=== PATIENT | female | born 1980 | race Caucasian/White ===

== ENCOUNTER 2024-03-01 17:52 | Emergency (ER) | payer BC, SELFPAY ==
[2024-03-01] VITALS (17 sets, daily range): BP systolic 148–162; BP diastolic 85–94; PULSE 95–115; TEMP 36.8; O2SAT 94–100; BMI 50.5
--- NOTE | 2024-03-01 18:13 | ECG_ITS ---
[facility] Test Date: 2024-03-01 Pat Name: Kym Reich Department: Room: - Gender: Female [employer]: : 1980 Requested By: [id number] Order Number: [id number] Reading MD: MOE LIN Measurements Intervals [place] Rate: 105 P: 67 LA: 156 QRS: 101 QRSD: 84 T: 33 QT: 332 QTc: 393 Interpretive Statements 1120 Sinus tachycardia 7100 Abnormal right axis deviation 9140 abnormal rhythm ECG Electronically Signed On 03-02-2024 7:01:59 EDT by MOE LIN
--- NOTE | 2024-03-01 18:15 | ED_ITS ---
HPI HPI - General Adult General Chief complaint: Back Pain/Injury Stated complaint: sob, poss kidney infection Time Seen by Provider: 03/01/24 18:08 Source: patient Mode of arrival: walk-in Limitations: no limitations History of Present Illness HPI narrative: Patient is a 43-year-old female with a history of insulin-dependent diabetes/insulin pump who presents to the ER for multiple complaints. She states her most pressing complaint is feeling more short of breath in the last several days. She was seen last week for upper respiratory symptoms and had negative swabs for COVID and flu. She states her upper respiratory symptoms have improved but she has had a tickle in her throat and shortness of breath. She has no specific chest pain but states she has had chest pressure. She r eports right flank pain for the last several days as well, she has been treated for UTI multiple times over the last month. She was initially on Keflex but states she continues to have urinary symptoms and had a urine culture that was positive for E. coli. Her primary care provider called in Augmentin for her today which she has not started yet. She has had no objective fevers or vomiting. She has had decreased appetite. She continues to have dysuria and bladder pressure with urination. Related Data Home Medications ?Medication ?Instructions ?Recorded ?Confirmed amlodipine 5 mg tablet 5 mg PO DAILY 03/01/24 03/01/24 bupropion HCl 150 mg 24 hr tablet, 150 mg PO DAILY 03/01/24 03/01/24 extended release cholecalciferol (vitamin D3) 25 25 mcg PO DAILY 03/01/24 03/01/24 mcg (1,000 unit) tablet duloxetine 60 mg capsule,delayed 60 mg PO DAILY 03/01/24 03/01/24 release ezetimibe 10 mg tablet 10 mg PO DAILY 03/01/24 03/01/24 irbesartan 150 mg tablet 150 mg PO DAILY 03/01/24 03/01/24 levonorgestrel-ethinyl estradiol 1 tab PO DAILY 03/01/24 03/01/24 90 mcg-20 mcg (28) tablet (Kavitha (28)) levothyroxine 50 mcg tablet 50 mcg PO DAILY 03/01/24 03/01/24 rosuvastatin 5 mg tablet 5 mg PO .weekly 03/01/24 03/01/24 Previous Rx's ?Medication ?Instructions ?Recorded levofloxacin 750 mg tablet 750 mg PO DAILY 5 days #5 tabs 03/01/24 ondansetron 4 mg disintegrating 4 mg PO Q6H PRN nausea and 03/01/24 tablet vomiting #12 tabs phenazopyridine 200 mg tablet 200 mg PO Q8H 2 days #6 tabs 03/01/24 (Pyridium) prednisone 20 mg tablet See Rx Instructions .Route 03/01/24 .COMPLEX #12 tabs Allergies Allergy/AdvReac Type Severity Reaction Status Date / Time morphine Allergy Severe Verified 03/01/24 18:01 topiramate [From Topamax] Allergy Severe Verified 03/01/24 18:01 amoxicillin AdvReac Severe Verified 03/01/24 18:01 Opioid HPI Opioid Management Most Recent Opioid Data: Last Pain Scale 1 03/01/24 18:44 Review of Systems ROS Constitutional Denies: fever or chills Ears, nose, mouth, and throat Reports: nasal congestion; Denies: throat pain Cardiovascular Denies: chest pain Respiratory Reports: shortness of breath and cough Gastrointestinal Denies: abdominal pain, nausea, vomiting or diarrhea Genitourinary Reports: painful urination and urinary frequency Musculoskeletal Reports: back pain Integumentary/Breast Denies: rash Neurological Denies: headache Hematologic/Lymphatic Denies: easy bruising or easy bleeding Exam Narrative Exam Narrative: Gen.: Awake, alert, in no distress Head: Normocephalic, atraumatic ENT: Moist mucous membranes Respiratory: No respiratory distress, lungs clear bilaterally Cardio: Regular rate and rhythm Gastrointestinal: Abdomen is soft, obese, nondistended and nontender to palpation; Insulin pump to the anterior abdomen Back: Minimal tenderness of the right flank with no specific CVA tenderness, spinal tenderness Extremities: Moves extremities equally, no injuries noted Psych: Normal mood and affect Neuro: No focal neuro deficit Skin: Warm, dry, intact Constitutional Vital Signs, click to edit/add: Last Vital Signs Temp 98.3 F 03/01/24 18:02 Pulse 111 H 03/01/24 18:02 Resp 18 03/01/24 18:02 BP 162/91 H 03/01/24 18:02 Pulse Ox 100 03/01/24 18:45 O2 Del Method Room Air 03/01/24 18:45 Course Vital Signs Vital signs: Vital Signs Temperature 98.3 F 03/01/24 18:02 Pulse Rate 111 H 03/01/24 18:02 Respiratory Rate 18 03/01/24 18:02 Blood Pressure 162/91 H 03/01/24 18:02 Pulse Oximetry 98 03/01/24 18:02 Oxygen Delivery Method Room Air 03/01/24 18:02 Temperature 98.3 F 03/01/24 18:02 Pulse Rate 111 H 03/01/24 18:02 Respiratory Rate 18 03/01/24 18:02 Blood Pressure 162/91 H 03/01/24 18:02 Pulse Oximetry 100 03/01/24 18:45 Oxygen Delivery Method Room Air 03/01/24 18:45 Medical Decision Making MDM Narrative Medical decision making narrative: IV established with IV fluids given, patient declined pain medication in the ER. Urine specimen shows no evidence of urinary tract infection. Patient was called in Augmentin by her primary care provider but she is allergic to am oxicillin. Her lab studies showed no evidence of acute process. She did have an elevated D-dimer and was sent for CT angio of the chest as well as a CT abdomen and pelvis without contrast. CT of the abdomen shows moderate stool consistent with constipation, Patient was encouraged to use MiraLAX [id number]. Her CT angio of the chest shows a mild groundglass opacity in the left upper lobe consistent with pneumonia. She will be given Levaquin, prednisone at her request and Pyridium for urinary symptoms. She is referred to urology if she continues to have urinary symptoms. Follow-up with PCP and return to the ER if symptoms change or worsen. Medical Records Medical records reviewed: Yes I reviewed the patient's medical records Lab Data Lab results reviewed: Yes I reviewed the patient's lab results Labs: Lab Results 03/01/24 03/01/24 03/01/24 Range/Units 18:11 18:19 18:28 WBC 11.7 H (4.0-11.0) 10^3/uL RBC 4.38 (4.20-5.40) 10^6/uL Hgb 12.0 (12.0-16.0) g/dL Hct 37.8 (36.0-48.0) % MCV 86.3 (81.0-99.0) fL MCH 27.4 (26.7-34.0) pg MCHC 31.7 (29.9-35.2) g/dL RDW 14.2 (11.0-15.0) % Plt Count 518 H (150-450) 10^3/uL MPV 10.2 (9.5-13.5) fL Neut % (Auto) 62.7 (43.0-75.0) % Lymph % (Auto) 27.9 (20.5-60.0) % [place] % (Auto) 6.2 (1.7-12.0) % Eos % (Auto) 1.9 (0.9-7.0) % Baso % (Auto) 0.6 (0.2-2.0) % Neut # (Auto) 7.3 H (1.4-6.5) 10^3/uL Lymph # (Auto) 3.3 (1.2-3.8) 10^3/uL [place] # (Auto) 0.7 (0.3-0.8) 10^3/uL Eos # (Auto) 0.2 (0.0-0.7) 10^3/uL Baso # (Auto) 0.1 (0.0-0.1) 10^3/uL Abs Immat Gran (auto) 0.08 H (0.00-0.03) 10^3/uL Imm/Tot Granulo (auto) 0.7 H (0.0-0.5) % D-Dimer 1.18 H* (<=0.59) mg/L FEU VBG pH 7.441 H (7.330-7.430) VBG pCO2 39.1 L (40.0-52.0) mmHg Sodium 137 (136-145) mmol/L Potassium 3.6 (3.5-5.1) mmol/L Chloride 100 (98-107) mmol/L Carbon Dioxide 27.1 (21.0-32.0) mmol/L Anion Gap 13.5 BUN 11.0 (7.0-18.0) mg/dL Creatinine 0.91 (0.55-1.02) mg/dL Est GFR ( Amer) >60 (>=60) Est GFR (Non-Af Amer) >60 (>=60) BUN/Creatinine Ratio 12.1 Glucose 150 H (74-106) mg/dL Lactate 1.8 (0.4-2.0) mmol/L Calcium 9.1 (8.5-10.1) mg/dL Magnesium 2.0 (1.8-2.4) mg/dL Total Bilirubin 0.5 (0.2-1.0) mg/dL AST 16 (15-37) U/L ALT 35 (14-59) U/L Alkaline Phosphatase 149 H (46-116) U/L Troponin I High Sens <4.0 L (4.0-51.3) pg/mL NT-Pro-B Natriuret Pep 155.0 (<=450.0) pg/mL Total Protein 7.4 (6.4-8.2) g/dL Albumin 3.0 L (3.4-5.0) g/dL Globulin 4.4 g/dL Albumin/Globulin Ratio 0.7 Procalcitonin <0.05 (0.00-0.50) ng/mL Serum HCG, Qual Negative (NEGATIVE) Urine Color Yellow (YELLOW) Urine Clarity Clear (CLEAR) Urine pH 6.0 (5.0-9.0) Ur Specific [place] >=1.030 A (1.005-1.025) Urine Protein Negative (NEG/TRACE) mg/dL Urine Glucose (UA) Negative (NEGATIVE) mg/dL Urine Ketones Negative (NEGATIVE) mg/dL Urine Occult Blood Negative (NEGATIVE) Urine Nitrite Negative (NEGATIVE) Urine Bilirubin Negative (NEGATIVE) Urine Urobilinogen 1.0 (0.2-1.0) EU/dL Ur Leukocyte Esterase Negative (NEGATIVE) Imaging Data CT scan - chest: Attestation: I have reviewed the pertinent imaging results. Radiologist's impression: ITS Impressions Abdomen/Pelvis CT 03/01/24 19:05 IMPRESSION: 1. No significant acute abnormality identified in the abdomen or pelvis, within the limits of unenhanced CT, as described above. No obstructing urinary calculi or hydronephrosis. Normal appendix. 2. Mild diffuse colonic stool burden may reflect constipation. Electronically authenticated by: BLANCHE JEFFREY Date: 03/01/2024 20:23 Chest CTA 03/01/24 19:05 Impression: 1. No pulmonary embolism. 2. Focal groundglass infiltrate in the left upper lobe is suspicious for pneumonia. Recommend follow-up imaging to ensure resolution. Electronically authenticated by: ARNOLDO MORAN Date: 03/01/2024 20:57 ECG Data Attestation: I personally reviewed and interpreted this ECG as follows: (Sinus tachycardia at a rate of 105, no acute ST elevation or ectopy. EKG reviewed by attending physician) Discharge Plan Discharge Stand Alone Forms: Portal Instructions Chief Complaint: Back Pain/Injury Clinical Impression: Shortness of breath, Flank pain, Left upper lobe pneumonia Patient Disposition: Home, Self-Care Time of Disposition Decision: 21:08 Condition: Good Prescriptions / Home Meds: New levofloxacin 750 mg tablet 750 mg PO DAILY 5 Days Qty: 5 0RF phenazopyridine [Pyridium] 200 mg tablet 200 mg PO Q8H 2 Days Qty: 6 0RF prednisone 20 mg tablet See Rx Instructions .ROUTE .COMPLEX Qty: 12 0RF Rx Instructions: 3 tabs daily for 2 days, then 2 tabs daily for 2 days, then 1 tab daily for 2 days ondansetron 4 mg tablet,disintegrating 4 mg PO Q6H PRN (Reason: nausea and vomiting) Qty: 12 0RF No Action amlodipine 5 mg tablet 5 mg PO DAILY bupropion HCl 150 mg tablet extended release 24 hr 150 mg PO DAILY cholecalciferol (vitamin D3) 25 mcg (1,000 unit) tablet 25 mcg PO DAILY duloxetine 60 mg capsule,delayed release(DR/EC) 60 mg PO DAILY ezetimibe 10 mg tablet 10 mg PO DAILY irbesartan 150 mg tablet 150 mg PO DAILY levonorgestrel-ethinyl estrad [Kavitha (28)] 90-20 mcg (28) tablet 1 tab PO DAILY levothyroxine 50 mcg tablet 50 mcg PO DAILY rosuvastatin 5 mg tablet 5 mg PO .weekly Print Language: Ukrainian Instructions: Flank Pain (ED), Pneumonia (ED), Shortness of Breath (ED) Referrals: Binh Aguilar MD [Physician] - 1 week CIARA URIBE [Primary Care Provider] - 1 week
[2024-03-01] MEDS: 0.9 % SODIUM CHLORIDE 1,000 ML 999 ML IV (18:32)
[2024-03-01 18:38] LABS: PCO2 VBG 39.1 mmHg (40.0-52.0); pH VBG 7.441 (7.330-7.430)
[2024-03-01 18:43] LABS: Basophils Absolute Auto 0.1 10^3/uL (0.0-0.1); Basophils Percent Auto 0.6 % (0.2-2.0); Eosinophils Absolute Auto 0.2 10^3/uL (0.0-0.7); Eosinophils Percent Auto 1.9 % (0.9-7.0); Hematocrit 37.8 % (36.0-48.0); Immature Granulocytes Abs Auto 0.08 10^3/uL (0.00-0.03); Immature Granulocytes Pct Auto 0.7 % (0.0-0.5); Lymphocytes Absolute Auto 3.3 10^3/uL (1.2-3.8); Lymphocytes Percent Auto 27.9 % (20.5-60.0); Mean Corpuscular HGB Conc 31.7 g/dL (29.9-35.2); Mean Corpuscular Hemoglobin 27.4 pg (26.7-34.0); Mean Corpuscular Volume 86.3 fL (81.0-99.0); Mean Platelet Volume 10.2 fL (9.5-13.5); Monocytes Absolute Auto 0.7 10^3/uL (0.3-0.8); Monocytes Percent Auto 6.2 % (1.7-12.0); Neutrophils Absolute Auto 7.3 10^3/uL (1.4-6.5); Neutrophils Percent Auto 62.7 % (43.0-75.0); Platelet Count 518 10^3/uL (150-450); Red Blood Count 4.38 10^6/uL (4.20-5.40); Red Cell Distribution Width 14.2 % (11.0-15.0); White Blood Count 11.7 10^3/uL (4.0-11.0)
[2024-03-01 18:52] LABS: Bilirubin Urine NEGATIVE (NEGATIVE); Blood Urine NEGATIVE (NEGATIVE); Clarity Urine CLEAR (CLEAR); Color Urine YELLOW (YELLOW); Glucose Urine UA NEGATIVE (NEGATIVE); Ketones Urine NEGATIVE (NEGATIVE); Leukocyte Esterase Urine NEGATIVE (NEGATIVE); Nitrite Urine NEGATIVE (NEGATIVE); Protein Urine NEGATIVE (NEG/TRACE); Specific Gravity Urine >=1.030 (1.005-1.025)
[2024-03-01 18:53] LABS: HCG Qualitative NEGATIVE (NEGATIVE)
[2024-03-01 18:54] LABS: Urine Microscopic Indicated NO
[2024-03-01 18:59] LABS: Lactate/Lactic Acid 1.8 mmol/L (0.4-2.0)
--- NOTE | 2024-03-01 19:05 | CT_ITS ---
The [address] [address] Patient Name: CHRISTIANO GARCIA MRN: [id number] date: 1980 Sex: F Assigned Patient Location: ER Current Patient Location: ER Accession/Order Number: [id number] Exam Date: 03/01/2024 19:39 Report Date: 03/01/2024 20:57 At the request of: JAMI PERDOMO Procedure: CT angio chest CT angio chest 03/01/2024 6:39 PM CDT: History: pe Chest pain. Possible pulmonary embolism. Comparison: None. Technique: IV Contrast enhanced CTA imaging of the chest. Sagittal and coronal MIP reformatted images are provided. This CT exam was performed using one or more of the following dose reduction techniques: Automated exposure control, adjustment of the mA and/or KV according to patient size, or use of iterative reconstruction technique. Findings: The central airway is midline and patent. The lungs are well expanded. There is groundglass opacities in the anterior segment of the left upper lobe. There is mild bibasilar and bilateral dependent atelectasis. There is no pleural effusion or pneumothorax. The heart size is normal. There is no pericardial effusion. The pulmonary arteries are patent and normal in caliber. There is no pulmonary embolism. The thoracic aorta is patent and normal in caliber. There is diffuse hepatic steatosis. There is degenerative disc disease of the thoracic spine. CT/CT angio chest Impression: 1. No pulmonary embolism. 2. Focal groundglass infiltrate in the left upper lobe is suspicious for pneumonia. Recommend follow-up imaging to ensure resolution. Electronically authenticated by: ARNOLDO MORAN Date: 03/01/2024 20:57
--- NOTE | 2024-03-01 19:05 | CT_ITS ---
The [address] [address] Patient Name: CHRISTIANO GARCIA MRN: [id number] date: 1980 Sex: F Assigned Patient Location: ER Current Patient Location: ER Accession/Order Number: [id number] Exam Date: 03/01/2024 19:35 Report Date: 03/01/2024 20:23 At the request of: JAMI PERDOMO Procedure: CT abdomen pelvis wo con EXAM: CT abdomen pelvis wo con CLINICAL INDICATION: right flank pain COMPARISON: None. TECHNIQUE: Axial CT of the abdomen, and pelvis was performed from the top of the hemidiaphragms to the inferior osseous pelvis without intravenous contrast. 2-D reformats were obtained. Automatic exposure control radiation dose reduction technology was utilized. FINDINGS: Evaluation is limited by lack of intravenous contrast. Visualized portion of the lung bases are unremarkable. The liver, spleen, kidneys, adrenal glands and pancreas are unremarkable. Gallbladder absent. No abdominal aortic aneurysm. No enlarged lymph nodes, free fluid, or free air. Mild diffuse colonic stool burden. The bowel is without evidence of obstruction or adjacent inflammatory changes. Normal appendix. Bladder unremarkable. No suspicious osseous lesions. CT/CT abdomen pelvis wo con IMPRESSION: 1. No significant acute abnormality identified in the abdomen or pelvis, within the limits of unenhanced CT, as described above. No obstructing urinary calculi or hydronephrosis. Normal appendix. 2. Mild diffuse colonic stool burden may reflect constipation. Electronically authenticated by: BLANCHE JEFFREY Date: 03/01/2024 20:23
[2024-03-01 19:06] LABS: Alanine Aminotransferase 35 U/L (14-59); Albumin Globulin Ratio 0.7; Alkaline Phosphatase 149 U/L (46-116); Anion Gap 13.5; Aspartate Amino Transferase 16 U/L (15-37); BUN Creatinine Ratio 12.1; Bilirubin Total 0.5 mg/dL (0.2-1.0); Calcium 9.1 mg/dL (8.5-10.1); Carbon Dioxide 27.1 mmol/L (21.0-32.0); Chloride 100 mmol/L (98-107); D Dimer 1.18 mg/L FEU (<=0.59); Estimated GFR (African America >60 (>=60); Estimated GFR (Non-African Ame >60 (>=60); Globulin 4.4 g/dL; Glucose 150 mg/dL (74-106); Potassium 3.6 mmol/L (3.5-5.1); Sodium 137 mmol/L (136-145); Total Protein 7.4 g/dL (6.4-8.2); Troponin I High Sensitivity <4.0 pg/mL (4.0-51.3)
[2024-03-01 19:12] LABS: PROCALCITONIN <0.05 ng/mL (0.00-0.50)
[2024-03-01] MEDS: PHENAZOPYRIDINE 100 MG TABLET 200 MG PO (21:11)
[2024-03-01] MEDS: LEVOFLOXACIN 750 MG TABLET PO (21:11)
[2024-03-01] MEDS: PREDNISONE 20 MG TABLET 60 MG PO (21:11)
[2024-03-03 00:08] LABS: A. calcoaceticus-baumannii Cpx NOT DETECTED (NOT DETECTE); Bacteroides fragilis NOT DETECTED (NOT DETECTE); Candida albicans NOT DETECTED (NOT DETECTE); Candida auris NOT DETECTED (NOT DETECTE); Candida glabrata NOT DETECTED (NOT DETECTE); Candida krusei NOT DETECTED (NOT DETECTE); Candida parapsilosis NOT DETECTED (NOT DETECTE); Candida tropicalis NOT DETECTED (NOT DETECTE); Cryptococcus neoformans/gattii NOT DETECTED (NOT DETECTE); Enterobacter cloacae complex NOT DETECTED (NOT DETECTE); Enterobacterales NOT DETECTED (NOT DETECTE); Enterococcus faecalis NOT DETECTED (NOT DETECTE); Enterococcus faecium NOT DETECTED (NOT DETECTE); Haemophilus influenzae NOT DETECTED (NOT DETECTE); Klebsiella aerogenes NOT DETECTED (NOT DETECTE); Klebsiella pneumoniae group NOT DETECTED (NOT DETECTE); Listeria monocytogenes NOT DETECTED (NOT DETECTE); Neisseria meningitidis NOT DETECTED (NOT DETECTE); Proteus spp. NOT DETECTED (NOT DETECTE); Pseudomonas aeruginosa NOT DETECTED (NOT DETECTE); Salmonella spp. NOT DETECTED (NOT DETECTE); Serratia marcescens NOT DETECTED (NOT DETECTE); Staphylococcus epidermidis NOT DETECTED (NOT DETECTE); Staphylococcus lugdunensis NOT DETECTED (NOT DETECTE); Stenotrophomonas maltophilia NOT DETECTED (NOT DETECTE); Streptococcus agalactiae NOT DETECTED (NOT DETECTE); Streptococcus pneumoniae NOT DETECTED (NOT DETECTE); Streptococcus pyogenes NOT DETECTED (NOT DETECTE); Streptococcus spp. NOT DETECTED (NOT DETECTE)
[2024-03-03 01:31] LABS: Source Blood
[2024-03-03 01:35] LABS: Staphylococcus spp. DETECTED (NOT DETECTE)
--- NOTE | 2024-03-04 15:49 | PC.NURSE ---
03/04/24 [id number] Alex MACEDO reviewed pt preliminary blood culture from 03/01/24 asked to call pt and see how pt is feeling, called no answer LM for return call. Rafa Ibrahim RN
== END 2024-03-01 21:19 | disposition home or self-care (01) ==
PROVIDERS: Physician Assistant; Emergency Provider Emergency Medicine; PCP Family Medicine
DX: J18.9 Pneumonia, unspecified organism (principal); R10.9 Unspecified abdominal pain; R06.02 Shortness of breath; E11.9 Type 2 diabetes mellitus without complications; R79.1 Abnormal coagulation profile; Z79.4 Long term (current) use of insulin; Z96.41 Presence of insulin pump (external) (internal); Z79.899 Other long term (current) drug therapy; Z79.890 Hormone replacement therapy
CPT/HCPCS: 36415; 71275; 74176; 80053; 81003; 82800; 83605; 83735; 83880; 84145; 84484; 84703; 85025; 85378; 87040; 87150; 87186; 93005; 99285; Q9967

== ENCOUNTER 2025-04-12 17:16 | Emergency (ER) | payer BC, OTHER, SELFPAY ==
[2025-04-12 17:20] VITALS: BP 140/100; PULSE 106; TEMP 36.8; O2SAT 96; BMI 44.9
--- NOTE | 2025-04-12 17:35 | ED.GENADUL1 ---
HPI HPI - General Adult General Chief complaint: Extremity Problem, Nontraumatic Stated complaint: possible abscess on arm from insulin pump Time Seen by Provider: 04/12/25 17:28 Source: patient Mode of arrival: walk-in Limitations: no limitations History of Present Illness HPI narrative: Patient is a 44-year-old female who is presenting to the ER with chief complaint of 2 days of a hard firm indurated abscess that is 2 x 2 cm to the left arm along with a area of 14 x 13 cm faint erythema/early cellulitis. Patient had a Dexcom implant to the left upper external arm where she last had the Dexcom implanted. Patient thinks she may have a small infection or abscess to the area. Patient has no fever or chills. No nausea or vomiting. Patient blood sugars have been controlled per her normal. Her last hemoglobin A1c was 7. All systems are negative except as noted/marked. All systems reviewed and otherwise negative. Nurses note and vital signs reviewed and patient is not hypoxic. General: The patient appears well and in no apparent distress. Patient is resting comfortably on cart. Patient is not toxic, lethargic, or listless Skin: Warm, dry, no pallor noted. There is no rash noted. No petechiae, purpura. Patient has a 2 x 2 cm hard, firm, indurated area to the left upper lateral arm, moderate tenderness to palpation. Patient has a very faint area of redness/erythema/early cellulitis surrounding the area that is approximately 14 x 13 cm. A skin marker was used to lior the area. Head: Normocephalic, atraumatic Eye: Normal conjunctiva, no drainage, EOMI. PERRL Ears, Nose, Mouth, and Throat: oral mucosa is moist. Nares patent. Mouth without vesicles. Cardiovascular: Regular Rate and Rhythm, no murmur, gallop, rub Respiratory: Patient is in no distress, no accessory muscle use, lungs are clear to auscultation, no wheezing, rales or rhonchi Back: non-tender, no CVA tenderness bilaterally to percussion. No CT LS midline pain GI: Soft, obese, no tenderness to palpation, no masses appreciated. No rebound, guarding, or rigidity noted. No distention Musculoskeletal: Patient has full range of motion of all of the extremities, no motor, sensory, or focal neurological deficits Neurological: A&O x4, normal speech Psychiatric: Cooperative Related Data Home Medications ?Medication ?Instructions ?Recorded ?Confirmed amlodipine 5 mg tablet 5 mg PO DAILY 03/01/24 03/01/24 bupropion HCl 150 mg 24 hr tablet, 150 mg PO DAILY 03/01/24 03/01/24 extended release cholecalciferol (vitamin D3) 25 25 mcg PO DAILY 03/01/24 03/01/24 mcg (1,000 unit) tablet duloxetine 60 mg capsule,delayed 60 mg PO DAILY 03/01/24 03/01/24 release ezetimibe 10 mg tablet 10 mg PO DAILY 03/01/24 03/01/24 irbesartan 150 mg tablet 150 mg PO DAILY 03/01/24 03/01/24 levonorgestrel-ethinyl estradiol 1 tab PO DAILY 03/01/24 03/01/24 90 mcg-20 mcg (28) tablet (Kavitha (28)) levothyroxine 50 mcg tablet 50 mcg PO DAILY 03/01/24 03/01/24 rosuvastatin 5 mg tablet 5 mg PO .weekly 03/01/24 03/01/24 Previous Rx's ?Medication ?Instructions ?Recorded levofloxacin 750 mg tablet 750 mg PO DAILY 5 days #5 tabs 03/01/24 ondansetron 4 mg disintegrating 4 mg PO Q6H PRN nausea and 03/01/24 tablet vomiting #12 tabs phenazopyridine 200 mg tablet 200 mg PO Q8H 2 days #6 tabs 03/01/24 (Pyridium) prednisone 20 mg tablet See Rx Instructions .Route 03/01/24 .COMPLEX #12 tabs clindamycin HCl 300 mg capsule 300 mg PO TID 7 days #21 caps 04/12/25 mupirocin 2 % topical ointment 1 applic topical TID 14 days #15 04/12/25 grams Allergies Allergy/AdvReac Type Severity Reaction Status Date / Time morphine Allergy Severe Verified 03/01/24 18:01 topiramate (From Topamax) Allergy Severe Verified 03/01/24 18:01 amoxicillin AdvReac Severe Verified 03/01/24 18:01 Opioid HPI Opioid Management Most Recent Opioid Data: Last Pain Scale 1 03/01/24, 18:44 PFSH PFSH Social History Little interest or pleasure in doing things: not at all Feeling down, depressed, or hopeless: not at all Exam Constitutional Vital Signs, click to edit/add: Last Vital Signs Temp 98.2 F 04/12/25 17:20 Pulse 106 H 04/12/25 17:20 Resp 18 04/12/25 17:20 BP 140/100 H 04/12/25 17:20 Pulse Ox 96 04/12/25 17:20 O2 Del Method Room Air 04/12/25 17:20 Course Vital Signs Vital signs: Vital Signs Temperature 98.2 F 04/12/25 17:20 Pulse Rate 106 H 04/12/25 17:20 Respiratory Rate 18 04/12/25 17:20 Blood Pressure 140/100 H 04/12/25 17:20 Pulse Oximetry 96 04/12/25 17:20 Oxygen Delivery Method Room Air 04/12/25 17:20 Temperature 98.2 F 04/12/25 17:20 Pulse Rate 106 H 04/12/25 17:20 Respiratory Rate 18 04/12/25 17:20 Blood Pressure 140/100 H 04/12/25 17:20 Pulse Oximetry 96 04/12/25 17:20 Oxygen Delivery Method Room Air 04/12/25 17:20 Medical Decision Making MDM Narrative Medical decision making narrative: Patient states that her pain is moderate to severe, patient states she also has chronic pain that makes pain seen worse. Patient will be placed on Bactroban ointment and clindamycin tablets. Education hard firm abscesses and induration were discussed at bedside. There is no fluctuance, no acute indication for I&D at this time. Patient is aware of this and agrees. Patient be placed on ointment and topical antibiotic tablets. Patient will follow-up with PCP. Patient has seen Dr. Sanchez in the past. She will call Tuesday to make an appointment to follow-up for reevaluation. Patient will be moving her Dexcom and her sugar implant to the right arm away from the area of early infection. No question at discharge. Patient has area of 2 x 2 hard, firm, indurated abscess. No areas of fluctuance. Discharge Plan Discharge Chief Complaint: Extremity Problem, Nontraumatic Clinical Impression: Abscess of arm, left, Cellulitis of arm, left Patient Disposition: Home, Self-Care Time of Disposition Decision: 17:46 Condition: Fair Prescriptions / Home Meds: New clindamycin HCl 300 mg capsule 300 mg PO TID 7 Days Qty: 21 0RF mupirocin 2 % ointment 1 applic topical TID 14 Days Qty: 15 0RF No Action amlodipine 5 mg tablet 5 mg PO DAILY bupropion HCl 150 mg tablet extended release 24 hr 150 mg PO DAILY cholecalciferol (vitamin D3) 25 mcg (1,000 unit) tablet 25 mcg PO DAILY duloxetine 60 mg capsule,delayed release(DR/EC) 60 mg PO DAILY ezetimibe 10 mg tablet 10 mg PO DAILY irbesartan 150 mg tablet 150 mg PO DAILY levonorgestrel-ethinyl estrad [Kavitha (28)] 90-20 mcg (28) tablet 1 tab PO DAILY levothyroxine 50 mcg tablet 50 mcg PO DAILY rosuvastatin 5 mg tablet 5 mg PO .weekly levofloxacin 750 mg tablet 750 mg PO DAILY 5 Days Qty: 5 0RF phenazopyridine [Pyridium] 200 mg tablet 200 mg PO Q8H 2 Days Qty: 6 0RF prednisone 20 mg tablet See Rx Instructions .ROUTE .COMPLEX Qty: 12 0RF Rx Instructions: 3 tabs daily for 2 days, then 2 tabs daily for 2 days, then 1 tab daily for 2 days ondansetron 4 mg tablet,disintegrating 4 mg PO Q6H PRN (Reason: nausea and vomiting) Qty: 12 0RF Print Language: Slovenian Instructions: Abscess (ED) Additional Instructions: Call Dr. Sanchez on Tuesday to follow-up for left arm abscess/early cellulitis. If the area is double incising of the redness, or the hard firm abscess, or any other acute concerns, follow-up or return back to the ER as well. Follow-up with PCP. Referrals: CIARA URIBE [Primary Care Provider, Family Practice] - 1 week Fei Sanchez MD [Physician, General Surgery] - 1 week
== END 2025-04-12 17:57 | disposition home or self-care (01) ==
PROVIDERS: Emergency Provider Emergency Medicine; PCP Family Medicine
DX: L02.414 Cutaneous abscess of left upper limb (principal); L03.114 Cellulitis of left upper limb; R22.32 Localized swelling, mass and lump, left upper limb; L53.9 Erythematous condition, unspecified; M79.622 Pain in left upper arm
CPT/HCPCS: 99283